=== PATIENT | female | born 1955 | race Caucasian/White ===

== ENCOUNTER → 2017-07-02 | Outpatient (CLI) | payer OTHER ==
--- NOTE | 2017-07-02 19:00 | MR ---
EXAMINATION TYPE: MR liver wo/w con DATE OF EXAM: 07/02/2017 COMPARISON: NONE HISTORY: Hepatitis C CONTRAST: Standard multiplanar, multisequence MRI departmental protocol utilizing 7.5 ml mL intravenous Gadavis t gadolinium contrast. FINDINGS: Peripheral nodular hepatic contour is noted. Reflect cirrhotic liver disease. There is decreased thro ughout the liver are compatible with hepatic steatosis. Hepatomegaly with craniocaudal measurement of 21.2 cm. No enhancing mass lesion is identified within the liver. Intra and extrahepatic biliary lexx e. Be within normal limits. The gallbladder is filled with gallstones. No evidence for wall thickenin g. The pancreas is free of mass lesion or inflammatory process. The spleen is not enlarged and measures 10.5 cm craniocaudal dimension. The kidneys are free of solid mass or hydronephrosis. 1 cm cyst upper pole right kidney. Adrenal glands are grossly unremarkable. Gastrointestinal tract is of normal caliber. Visualized portions of the abdominal aorta are of normal caliber. IMPRESSION: 1. Findings felt to reflect underlying cirrhotic liver disease without evidence for mass lesion. Mild hepatic steatosis and hepatomegaly. 2. Cholelithiasis.
== END | disposition home or self-care (01) ==
LOC: RADMRIMAIN 16:54
PROVIDERS: ATTEND Physician Assistant
DX: K74.69 Other cirrhosis of liver (principal); B18.2 Chronic viral hepatitis C; K76.0 Fatty (change of) liver, not elsewhere classified; R16.0 Hepatomegaly, not elsewhere classified
CPT/HCPCS: 74183; A9581